=== PATIENT | female | born 2000 | race Two or more races ===

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

== ENCOUNTER 2023-04-14 02:55 | Emergency (ER) | payer MEDICAID, OTHER ==
[~2023-04-14] VITALS: Ht 175.3 cm; Wt 106.6 kg
[2023-04-14] MEDS ORDERED: ONDANSETRON ODT 4 MG TAB.RAPDIS SL ONE (03:30)
[2023-04-14] MEDS ORDERED: IBUPROFEN 600 MG TABLET PO ONE (03:30)
[2023-04-14] MEDS ORDERED: HYDROCODONE/APAP 10-325 MG TABLET PO ONE (03:30)
[2023-04-14] MEDS ORDERED: ONDANSETRON ODT 4 MG TAB.RAPDIS ONE (03:38)
[2023-04-14] MEDS ORDERED: IBUPROFEN 600 MG TABLET ONE (03:38)
[2023-04-14] MEDS ORDERED: HYDROCODONE/APAP 10-325 MG TABLET ONE (03:39)
[2023-04-14 04:31] LABS: *URINE HCG, QUAL NEGATIVE (NEGATIVE)
[2023-04-14] MEDS ORDERED: ONDA4TAB5 PO (04:53)
[2023-04-14] MEDS ORDERED: HYDR-3980 PO (04:53)
[2023-04-14 05:06] VITALS: BP 132/78; TEMP 97.9; O2SAT 98
== END 2023-04-14 05:08 | disposition home or self-care (01) ==
LOC: ER 02:55
DX: M65.4 Radial styloid tenosynovitis [de Quervain] (principal); R10.2 Pelvic and perineal pain; Z79.899 Other long term (current) drug therapy
CPT/HCPCS: 76856; 84703; A4663; Q0162

== ENCOUNTER 2023-11-25 22:56 | Emergency (ER) | payer MEDICAID ==
[~2023-11-25] VITALS: Ht 177.8 cm; Wt 129.3 kg
[~2023-11-25 22:56] MED LIST: HYDR-3980 PO; ONDA4TAB5 PO
[2023-11-25] MEDS ORDERED: NEOMY/BACITRA/POLYMYXIN B OINT UD PACKET TP ONE (23:18)
[2023-11-25] MEDS ORDERED: CEPH500C2 PO (23:27)
[2023-11-25] MEDS: NEOMY/BACITRA/POLYMYXIN B OINT UD PACKET TP ONE (23:39)
[2023-11-25 23:40] VITALS: BP 150/95; O2SAT 100
== END 2023-11-25 23:40 | disposition home or self-care (01) ==
LOC: ER 22:59
DX: T81.49XA Infection following a procedure, other surgical site, initial encounter (principal); R03.0 Elevated blood-pressure reading, without diagnosis of hypertension; F17.200 Nicotine dependence, unspecified, uncomplicated; Z79.899 Other long term (current) drug therapy; Y92.89 Other specified places as the place of occurrence of the external cause
CPT/HCPCS: A4606; A4663